=== PATIENT | female | born 1995 | race African-American/Black ===

== ENCOUNTER 2021-09-04 17:03 | Inpatient (IN) | payer MEDICAID, OTHER ==
[~2021-09-04] VITALS: Ht 160 cm; Wt 89.8 kg
[2021-09-04] MEDS ORDERED: ACETAMINOPHEN 325MG TABLET PO ONE (17:45)
[2021-09-04 18:37] LABS: BASOPHILS % 0.4 % (0.0-2.0); EOSINOPHILS % 0.2 % (0.0-5.0); HEMATOCRIT. 38.9 % (36.0-48.0); HEMOGLOBIN. 12.5 g/dL (12.0-16.0); LYMPHOCYTES % 14.9 % (20.0-50.0); MEAN CORPUSCULAR VOLUME 71.5 fL (81.0-99.0); MONOCYTES % 8.7 % (2.0-8.0); NEUTROPHILS % 75.8 % (40.0-76.0); PLATELET 415 x1000/uL (130-400); RED BLOOD CELL COUNT 5.44 mill/uL (4.2-5.4); RED CELL DISTRIBUTION WIDTH 18.6 % (11.6-14.6)
[2021-09-04 18:46] LABS: CHLORIDE 105 mEq/L (98-107)
[2021-09-04 18:51] LABS: HCG SCREEN NEGATIVE
[2021-09-04] MEDS ORDERED: KETOROLAC 15MG/ML VIAL IV ONE (19:00)
[2021-09-04] MEDS ORDERED: ASPIRIN 81MG TABLET PO ONE (19:00)
[2021-09-04] MEDS ORDERED: IOHEXOL-350 100 ML BOTTLE ONE (22:27)
[2021-09-05] MEDS ORDERED: ASPIRIN 325MG EC TABLET PO ONE
[2021-09-05] MEDS ORDERED: MAGNESIUM/ALUMINUM HYDROXIDE/SIMETHICONE 30ML UDC PO PRN (01:15)
[2021-09-05] MEDS ORDERED: HYDROCODONE/ACETAMINOPHEN 5/325MG TABLET PO PRN (01:15)
[2021-09-05] MEDS ORDERED: GUAIFENESIN 200MG/10ML SUGAR FREE UDC PO PRN (01:15)
[2021-09-05] MEDS ORDERED: IPRATROPIUM/ALBUTEROL 0.5-3(2.5)MG/3ML NEB NEB PRN (01:15)
[2021-09-05] MEDS ORDERED: DOCUSATE SODIUM 100MG CAPSULE PO PRN (01:15)
[2021-09-05] MEDS ORDERED: ACETAMINOPHEN 325MG TABLET PO PRN (01:15)
[2021-09-05] MEDS ORDERED: CLONIDINE 0.1MG TABLET PO PRN (01:15)
[2021-09-05] MEDS ORDERED: ONDANSETRON HCL 4MG/2ML INJ IV PRN (01:15)
[2021-09-05] MEDS ORDERED: SODIUM CHLORIDE 0.9% 100 ML IV ONE (01:15)
[2021-09-05] MEDS ORDERED: NALOXONE HCL 0.4MG/ML VIAL IV PRN (01:30)
[2021-09-05] MEDS: ENOXAPARIN 40MG/0.4ML SYR SUBCUT SCH (01:51)
[2021-09-05] MEDS: LACTATED RINGERS 1,000 ML IV SCH ×2 (02:36→19:48)
[2021-09-05 08:15] VITALS: BP 128/81
[2021-09-05] MEDS: ASPIRIN 81MG EC TABLET PO SCH (11:12)
[2021-09-05 11:22] VITALS: BP 128/81
[2021-09-05 12:00] VITALS: BP 116/70
[2021-09-05] MEDS ORDERED: NAPR220T66 PO (12:09)
[2021-09-05 12:25] LABS: BASOPHILS % 0.4 % (0.0-2.0); EOSINOPHILS % 0.4 % (0.0-5.0); HEMATOCRIT. 36.4 % (36.0-48.0); HEMOGLOBIN. 11.5 g/dL (12.0-16.0); LYMPHOCYTES % 20.8 % (20.0-50.0); MEAN CORPUSCULAR HEMOGLOBIN 22.7 pg (28.0-32.0); MEAN CORPUSCULAR VOLUME 71.8 fL (81.0-99.0); MEAN PLATELET VOLUME 8.1 fl (7.4-10.4); MONOCYTES % 14.1 % (2.0-8.0); NEUTROPHILS % 64.3 % (40.0-76.0); PLATELET 399 x1000/uL (130-400); RED BLOOD CELL COUNT 5.07 mill/uL (4.2-5.4); RED CELL DISTRIBUTION WIDTH 18.4 % (11.6-14.6)
[2021-09-05 12:36] LABS: CHLORIDE 107 mEq/L (98-107)
[2021-09-05 12:45] LABS: LDL CHOLESTEROL 120 mg/dL (5-100)
[2021-09-05 12:46] LABS: CREATINE KINASE MB FRACTION 1.3 ng/mL (0.5-3.6); HDL CHOLESTEROL 26 mg/dL (40-59)
[2021-09-05 16:23] LABS: CREATINE KINASE 171 IU/L (26-192)
[2021-09-05 16:24] LABS: CREATINE KINASE MB FRACTION < 1.0 ng/mL (0.5-3.6)
[2021-09-05] MEDS: IBUPROFEN 600MG TABLET PO PRN (18:32)
[2021-09-05 20:00] VITALS: BP 129/51
[2021-09-05 21:40] LABS: CLARITY URINE TURBID (CLEAR); COLOR URINE RED (YELLOW); KETONES URINE 2+ (NEGATIVE); LEUKOCYTE ESTERASE URINE 2+ (NEGATIVE); NITRITE URINE POSITIVE (NEGATIVE); OCCULT BLOOD URINE 2+ (NEGATIVE); PH URINE 5.5 (4.5-8.0); PROTEIN URINE 2+ (NEGATIVE); SPECIFIC GRAVITY URINE 1.035 (1.005-1.030); UROBILINOGEN URINE 0.2 E.U./dL (0.2-1.0)
[2021-09-05 21:55] LABS: *AMPHETAMINES SCREEN URINE NEGATIVE (NEGATIVE); *BARBITURATES SCREEN URINE NEGATIVE (NEGATIVE); *BENZODIAZEPINES SCREEN URINE NEGATIVE (NEGATIVE); *COCAINE SCREEN URINE NEGATIVE (NEGATIVE)
[2021-09-05 21:56] LABS: METHADONE URINE SCREEN NEGATIVE (NEGATIVE); OPIATES URINE SCREEN NEGATIVE (NEGATIVE); PHENCYCLIDINE URINE SCREEN NEGATIVE (NEGATIVE)
[2021-09-05 21:58] LABS: CANNABINOID URINE SCREEN PRESUMTIVE POSITIVE (NEGATIVE)
[2021-09-06] VITALS: BP 107/47
[2021-09-06 04:00] VITALS: BP 100/53
[2021-09-06] MEDS: IBUPROFEN 600MG TABLET PO PRN (04:14)
[2021-09-06] MEDS: LACTATED RINGERS 1,000 ML IV SCH ×2 (04:15→13:24)
[2021-09-06 08:12] VITALS: BP 108/57
[2021-09-06] MEDS: ASPIRIN 81MG EC TABLET PO SCH (09:14)
[2021-09-06] MEDS: ENOXAPARIN 40MG/0.4ML SYR SUBCUT SCH (09:14)
[2021-09-06] MEDS: ARIPIPRAZOLE 2MG TABLET PO SCH (09:14)
[2021-09-06] MEDS: SERTRALINE HCL 50MG TABLET PO SCH (09:17)
[2021-09-06 12:03] VITALS: BP 105/40
[2021-09-06 16:13] VITALS: BP 105/40
[2021-09-06] MEDS ORDERED: ARIP2TAB3 PO (16:37)
[2021-09-06] MEDS ORDERED: ASPI-1406 PO (16:37)
[2021-09-06] MEDS ORDERED: TEMA15CA PO (16:37)
[2021-09-06] MEDS ORDERED: SERT50TA PO (16:37)
[2021-09-06 20:00] VITALS: BP 128/67
[2021-09-06] MEDS ORDERED: TEMAZEPAM 15MG CAPSULE PO PRN (21:00)
[2021-09-07] VITALS: BP 125/72
[2021-09-07] MEDS: LACTATED RINGERS 1,000 ML IV SCH (00:50)
[2021-09-07 04:00] VITALS: BP 100/67
[2021-09-07 07:44] VITALS: BP 161/82
[2021-09-07 08:00] VITALS: BP 109/61
[2021-09-07] MEDS: SERTRALINE HCL 50MG TABLET PO SCH (08:59)
[2021-09-07] MEDS: ASPIRIN 81MG EC TABLET PO SCH (09:00)
[2021-09-07] MEDS: ARIPIPRAZOLE 2MG TABLET PO SCH (09:00)
[2021-09-07] MEDS: ENOXAPARIN 40MG/0.4ML SYR SUBCUT SCH (09:00)
[2021-09-07 11:59] VITALS: BP 108/60
[2021-09-07 12:00] VITALS: BP 108/60
== END 2021-09-07 14:17 | disposition home or self-care (01) | DRG 203 ==
LOC: ER 17:03 → MICUSO 09-05 01:04 → 6WST 09-05 08:36
PROVIDERS: ADMIT Internal Medicine; ATTEND Internal Medicine
DX: R07.89 Other chest pain (principal); F33.1 Major depressive disorder, recurrent, moderate; R45.851 Suicidal ideations; J45.909 Unspecified asthma, uncomplicated; G43.909 Migraine, unspecified, not intractable, without status migrainosus; E66.9 Obesity, unspecified; G47.00 Insomnia, unspecified; K59.00 Constipation, unspecified; Z98.891 History of uterine scar from previous surgery; Z79.899 Other long term (current) drug therapy; Z68.35 Body mass index [BMI] 35.0-35.9, adult; Z91.010 Allergy to peanuts; Z91.018 Allergy to other foods
CPT/HCPCS: 36415; 71045; 71275; 80048; 80053; 80061; 80305; 81003; 82550; 82553; 83735; 84443; 84484; 84703; 85025; 85379; 93005; 93306; 93970; 99285; J1650; J1885; J7050; Q9967

== ENCOUNTER 2021-12-20 18:39 | Emergency (ER) | payer MEDICAID, OTHER ==
[~2021-12-20] VITALS: Ht 162.6 cm; Wt 88.0 kg
[~2021-12-20 18:39] MED LIST: ARIP2TAB3 PO; ASPI-1406 PO; NAPR220T66 PO; SERT50TA PO; TEMA15CA PO
[2021-12-20 18:44] VITALS: BP 142/76
[2021-12-20] MEDS ORDERED: ACETAMINOPHEN 325MG TABLET PO ONE (20:30)
[2021-12-20] MEDS ORDERED: HYDR-4001 MT (22:43)
== END 2021-12-20 23:05 | disposition home or self-care (01) ==
LOC: ER 18:39
DX: S67.22XA Crushing injury of left hand, initial encounter (principal); X58.XXXA Exposure to other specified factors, initial encounter; Y93.89 Activity, other specified; Y92.89 Other specified places as the place of occurrence of the external cause; Y99.0 Civilian activity done for income or pay; J45.909 Unspecified asthma, uncomplicated; Z91.010 Allergy to peanuts; Z91.018 Allergy to other foods
CPT/HCPCS: 73110; 73130; 99284